=== PATIENT | male | born 1960 | race Caucasian/White ===

== ENCOUNTER 2019-01-19 15:05 | Inpatient (IN) | payer OTHER ==
[~2019-01-19] VITALS: Ht 185.4 cm; Wt 188.4 kg
[2019-01-19 15:09] VITALS: BP 192/73
[2019-01-19 15:39] LABS: BASO % 0.1 % (0.0-1.0); EOS % 0.1 % (1.0-4.0); HEMATOCRIT 46.2 % (42.0-52.0); HEMOGLOBIN 14.5 g/dl (14.0-18.0); LYMPH # 0.8 10*3/uL (1.3-4.4); LYMPH % 5.4 % (27.0-41.0); MEAN CELL VOLUME 85.9 fl (80.0-94.0); MEAN CORPUSCULAR HGB CONC 31.4 g/dl (33.0-37.0); MEAN PLATELET VOLUME 9.3 fl (9.6-12.3); MONO # 1.1 10*3/uL (0.1-1.0); MONO % 7.8 % (3.0-9.0); NEUT # 12.6 10*3/uL (2.3-7.9); PLATELET COUNT AUTOMATED 183 10*3/uL (130-400); RED BLOOD COUNT 5.38 10*6/uL (4.50-5.90); RED CELL DISTRI WIDTH 13.7 % (0-14.5); WHITE BLOOD COUNT 14.7 10*3/uL (4.8-10.8)
[2019-01-19 15:58] LABS: ALBUMIN 3.3 gm/dl (3.1-4.5); ALKALINE PHOSPHATASE 77 U/L (45-117); BUN 13 mg/dl (7-24); CHLORIDE 100 mmol/L (98-107); CREATININE 1.24 mg/dL (0.70-1.30); POTASSIUM 4.2 mmol/L (3.5-5.1); SGOT/AST 14 IU/L (3-35); SGPT/ALT 25 U/L (12-78); SODIUM 137 mmol/L (136-145); TROPONIN I 0.028 ng/ml (<0.045)
[2019-01-19 16:22] VITALS: BP 148/70
[2019-01-19 16:34] LABS: BILIRUBIN NEGATIVE (NEGATIVE); BLOOD TRACE-INTACT (NEGATIVE); CLARITY SL CLOUDY (CLEAR); COLOR YELLOW (YELLOW); GLUCOSE NEGATIVE (NEGATIVE); KETONE NEGATIVE (NEGATIVE); LEUKO ESTERASE TRACE (NEGATIVE); NITRITE NEGATIVE (NEGATIVE); PH 7.5 (5.0-9.0); SPECIFIC GRAVITY 1.015 (1.005-1.030)
[2019-01-19 16:39] LABS: RBC 0-2 rbc/hpf (0-2)
[2019-01-19 16:40] LABS: BACTERIA 4+; MUCOUS 2+; WBC TNTC wbc/hpf (0-5)
--- NOTE | 2019-01-19 18:48 | NUR ---
A 58, [facility] under the services of LIZABETH Dawn DO with a diagnosis of UTI, SEPSIS. Chief complaint is R FLANK PAIN, BURNING WITH URINATION. Patient arrived via bed from ER. Monitor applied. Initial assessment completed. Vital signs taken and recorded. LIZABETH DAWN DO notified of admission to the unit. Orders received. See assessment for past medical history, medications and allergies. Patient and/or family oriented to unit. [facility] visitation policy reviewed. Clothing/patient valuable form completed. CHEYENNE BELL
--- NOTE | 2019-01-19 19:20 | NUR ---
PT PROVIDED LIST OF HOME MEDICATIONS; PASSED ALONG TO NURSE CASTRO
[2019-01-19] MEDS ORDERED: CITALOPRAM40 MG PO (19:56)
[2019-01-19] MEDS ORDERED: LIPITOR20 MG PO ×2 (19:57→20:01)
[2019-01-19] MEDS ORDERED: FUROSEMIDE20 M1 PO (19:59)
[2019-01-19] MEDS ORDERED: OMEPRAZOLE40 MG PO (19:59)
[2019-01-19 20:00] VITALS: BP 151/63
[2019-01-19] MEDS ORDERED: ALLOPURINOL300 MG PO (20:00)
[2019-01-19] MEDS ORDERED: ABILIFY2 MG PO (20:00)
[2019-01-19] MEDS ORDERED: LISINOPRIL20 MG PO (20:00)
[2019-01-19] MEDS ORDERED: POTASSIUM CHLO20 ME3 PO (20:02)
[2019-01-19] MEDS ORDERED: HYDROCODONE-AC1 EAC1 PO (20:03)
[2019-01-19] MEDS ORDERED: BREO ELLIPTA 11 EACH INH (20:04)
[2019-01-19] MEDS ORDERED: VENT7GM INH (20:04)
[2019-01-19] MEDS ORDERED: IRON325 M1 PO (20:05)
--- NOTE | 2019-01-19 20:10 | NUR ---
DR SOMMERS NOTIFIED OF UPDATED MED REC.
--- NOTE | 2019-01-19 20:10 | NUR ---
SPOKE WITH DR SOMMERS REGARDING PTS SEPSIS BOLUS PROTOCOL. PER ORDER PT WOULD BE TO RECEIVE 5,400ML NORMAL SALINE. PT HAS A HISTORY OF CHF AND HAS 2+ EDEMA TO BLE AT THIS TIME. DR SOMMERS ORDERED TO DECREASE FLUIDS TO 150/HR AND ASSESS AFTER EACH BAG FOR SOB/FLUID OVERLOAD. DR SOMMERS AWARE OF FREQUENT PVC'S UPWARDS OF 25/MIN. STAT ORDER FOR BMP AND MAG TAKEN AT THIS TIME.
[2019-01-19 20:48] LABS: BUN 13 mg/dl (7-24); CHLORIDE 102 mmol/L (98-107); CREATININE 1.28 mg/dL (0.70-1.30); POTASSIUM 4.1 mmol/L (3.5-5.1); SODIUM 138 mmol/L (136-145)
--- NOTE | 2019-01-19 22:09 | NUR ---
PRN NORCO ADMINISTERED FOR PT C/O H/A RATED A 10 ON THE PAIN SCALE. WILL CONTINUE TO MONITOR AND REASSESS. NO OTHER COMPLAINTS AT THIS TIME.
--- NOTE | 2019-01-19 23:00 | NUR ---
PT ASLEEP, NO SIGNS OF DISCOMFORT OR DISTRESS NOTED. RESPIRATIONS NONLABORED AMD REGULAR.
--- NOTE | 2019-01-19 23:19 | NUR ---
DR SOMMERS NOTIFED OF PT HEARTRATE IN 110-115'S WITH 20 PVC'S. STATES TO CONTINUE TO MONITOR THE PT AND RUN FLUIDS AT 150ML/HR UNTIL PT RECEIVES APPROPRIATE AMOUNT ACCORDING TO SEPSIS PROTOCOL.
[2019-01-20] VITALS: BP 120/62
[2019-01-20 07:14] LABS: ALBUMIN 2.7 gm/dl (3.1-4.5); ALKALINE PHOSPHATASE 67 U/L (45-117); BUN 14 mg/dl (7-24); CHLORIDE 105 mmol/L (98-107); CHOLESTEROL 106 mg/dL (<200); HDL CHOLESTEROL 45 mg/dl (40-60); LDL CHOLESTEROL 50 mg/dL (9-159); PHOSPHOROUS 2.7 mg/dL (2.5-4.9); SGOT/AST 16 IU/L (3-35); SGPT/ALT 21 U/L (12-78); SODIUM 139 mmol/L (136-145); TOTAL PROTEIN 6.2 gm/dL (6.4-8.2); TRIGLYCERIDES 56 mg/dl (<150); VLDL CHOLESTEROL 11 mg/dL (6-40)
[2019-01-20 07:15] LABS: BASO % 0.2 % (0.0-1.0); EOS % 0.1 % (1.0-4.0); HEMATOCRIT 43.7 % (42.0-52.0); HEMOGLOBIN 13.5 g/dl (14.0-18.0); LYMPH # 1.3 10*3/uL (1.3-4.4); LYMPH % 9.1 % (27.0-41.0); MEAN CELL VOLUME 85.4 fl (80.0-94.0); MEAN CORPUSCULAR HGB 26.4 pg (27.0-31.0); MEAN CORPUSCULAR HGB CONC 30.9 g/dl (33.0-37.0); MONO # 1.5 10*3/uL (0.1-1.0); MONO % 10.7 % (3.0-9.0); NEUT # 10.9 10*3/uL (2.3-7.9); NEUT % 79.2 % (47.0-73.0); PLATELET COUNT AUTOMATED 164 10*3/uL (130-400); RED BLOOD COUNT 5.12 10*6/uL (4.50-5.90); RED CELL DISTRI WIDTH 14.1 % (0-14.5); WHITE BLOOD COUNT 13.8 10*3/uL (4.8-10.8)
[2019-01-20 07:26] LABS: ACT PARTIAL THROMBO TIME 29.6 SECONDS (20.0-32.1); INTERNATIONAL NORM RATIO 1.1 (2.0-3.5)
[2019-01-20 08:00] VITALS: BP 110/60
[2019-01-20 12:00] VITALS: BP 135/78
--- NOTE | 2019-01-20 13:17 | NUR ---
[employer] in to talk to patient. Patient states lives at home with family. There are few steps in the home. Physician: jonny zuniga [facility]acy: [facility] Home health services: none Patient's level of ADLs: INDEPENDENT Patient has working utilities: all working DME: none Follow-up physician's appointment after d/c: will be made by hospitalist nurse director upon discharge Does patient want to access PORTAL?: no Discharge plan discussed with patient, he states he lives at home, is independent in adls and ambulation, he states he will return home when medically stable and denies any home needs. PATSY LONG
--- NOTE | 2019-01-20 15:45 | NUR ---
PATIENT COMPLAINING OF HEADACHE AT THIS TIME AND MEDICATED WITH PO TYLENOL PER ORDER. WILL MONITOR FOR EFFECTIVENESS.
[2019-01-20 16:00] VITALS: BP 121/62
--- NOTE | 2019-01-20 17:00 | NUR ---
PER PATIENT, PRN MEDICATION HAS BEEN EFFECTIVE. NO FURTHER COMPLAINTS AT THIS TIME. VISITING WITH FAMILY IN ROOM.
[2019-01-20 20:00] VITALS: BP 116/57
[2019-01-21] VITALS: BP 123/61
[2019-01-21 06:41] LABS: BASO % 0.3 % (0.0-1.0); EOS # 0.2 10*3/uL (0.0-0.4); EOS % 2.2 % (1.0-4.0); HEMATOCRIT 42.1 % (42.0-52.0); HEMOGLOBIN 13.2 g/dl (14.0-18.0); LYMPH # 1.1 10*3/uL (1.3-4.4); LYMPH % 14.2 % (27.0-41.0); MEAN CELL VOLUME 86.1 fl (80.0-94.0); MEAN CORPUSCULAR HGB CONC 31.4 g/dl (33.0-37.0); MEAN PLATELET VOLUME 9.8 fl (9.6-12.3); MONO % 12.8 % (3.0-9.0); NEUT # 5.5 10*3/uL (2.3-7.9); NEUT % 69.6 % (47.0-73.0); PLATELET COUNT AUTOMATED 161 10*3/uL (130-400); RED BLOOD COUNT 4.89 10*6/uL (4.50-5.90); RED CELL DISTRI WIDTH 14.1 % (0-14.5); WHITE BLOOD COUNT 7.8 10*3/uL (4.8-10.8)
[2019-01-21 06:42] LABS: BUN 14 mg/dl (7-24); CHLORIDE 105 mmol/L (98-107); CREATININE 1.07 mg/dL (0.70-1.30); POTASSIUM 4.2 mmol/L (3.5-5.1); SODIUM 137 mmol/L (136-145)
[2019-01-21 08:00] VITALS: BP 128/78
--- NOTE | 2019-01-21 09:00 | NUR ---
case management visits with patient, he states he is hoping to be discharged today and denies any home needs
[2019-01-21] MEDS ORDERED: CEFUROXIME AXE500 MG PO (10:50)
[2019-01-21] MEDS ORDERED: TAMSULOSIN HCL0.4 MG PO (10:50)
--- NOTE | 2019-01-21 11:28 | NUR ---
HOME CARE INSTRUCTIONS GIVEN TOPT AND HE VERBALIZED GOOD UNDERSTANDING
--- NOTE | 2019-01-21 11:29 | NUR ---
DC TO HOME
== END 2019-01-21 10:53 | disposition home or self-care (01) | DRG 872 ==
LOC: ED 15:05 → 5E 18:09 → EDHOLD 18:09 → 5E 18:49
PROVIDERS: Family Medicine; Hospitalist; Physician Assistant; Student in an Organized Health Care Education/Training Program; ADMIT Internal Medicine
DX: A41.9 Sepsis, unspecified organism (principal); I50.22 Chronic systolic (congestive) heart failure; N30.01 Acute cystitis with hematuria; R17 Unspecified jaundice; N20.0 Calculus of kidney; R82.2 Biliuria; R73.9 Hyperglycemia, unspecified; I11.0 Hypertensive heart disease with heart failure; E55.9 Vitamin D deficiency, unspecified; B96.20 Unspecified Escherichia coli [E. coli] as the cause of diseases classified elsewhere; N28.1 Cyst of kidney, acquired; Z96.652 Presence of left artificial knee joint; D50.9 Iron deficiency anemia, unspecified; K21.9 Gastro-esophageal reflux disease without esophagitis; F41.9 Anxiety disorder, unspecified; F32.9 Major depressive disorder, single episode, unspecified; J45.909 Unspecified asthma, uncomplicated; E78.5 Hyperlipidemia, unspecified; M1A.9XX0 Chronic gout, unspecified, without tophus (tophi); Z87.442 Personal history of urinary calculi; Z90.49 Acquired absence of other specified parts of digestive tract; Z82.0 Family history of epilepsy and other diseases of the nervous system; Z79.899 Other long term (current) drug therapy

== ENCOUNTER 2019-02-10 14:03 | Emergency (ER) | payer OTHER ==
[~2019-02-10] VITALS: Ht 185.4 cm; Wt 188.2 kg
[~2019-02-10 14:03] MED LIST: ABILIFY2 MG PO; ALLOPURINOL300 MG PO; BREO ELLIPTA 11 EACH INH; CEFUROXIME AXE500 MG PO; CITALOPRAM40 MG PO; FUROSEMIDE20 M1 PO; HYDROCODONE-AC1 EAC1 PO; IRON325 M1 PO; LIPITOR20 MG PO; LISINOPRIL20 MG PO; OMEPRAZOLE40 MG PO; POTASSIUM CHLO20 ME3 PO; TAMSULOSIN HCL0.4 MG PO; VENT7GM INH
== END 2019-02-10 17:01 | disposition home or self-care (01) ==
LOC: ED 14:03
DX: S39.012A Strain of muscle, fascia and tendon of lower back, initial encounter (principal); M17.11 Unilateral primary osteoarthritis, right knee; J45.909 Unspecified asthma, uncomplicated; E78.00 Pure hypercholesterolemia, unspecified; I11.0 Hypertensive heart disease with heart failure; I50.9 Heart failure, unspecified; K21.9 Gastro-esophageal reflux disease without esophagitis; E66.01 Morbid (severe) obesity due to excess calories; Z87.442 Personal history of urinary calculi; Z79.899 Other long term (current) drug therapy; Z79.2 Long term (current) use of antibiotics; W18.41XA Slipping, tripping and stumbling without falling due to stepping on object, initial encounter; Y93.89 Activity, other specified; Y92.89 Other specified places as the place of occurrence of the external cause; Y99.8 Other external cause status

== ENCOUNTER 2021-10-03 21:50 | Emergency (ER) | payer OTHER, MEDICAID ==
[~2021-10-03] VITALS: Ht 185.4 cm; Wt 178.7 kg
[2021-10-04 00:50] LABS: HEMATOCRIT 44.5 % (42.0-52.0); MEAN CELL VOLUME 85.2 fl (80.0-94.0); MEAN CORPUSCULAR HGB 27.6 pg (27.0-31.0); MEAN CORPUSCULAR HGB CONC 32.4 g/dl (33.0-37.0); MEAN PLATELET VOLUME 9.7 fl (9.6-12.3); PLATELET COUNT AUTOMATED 166 10*3/uL (130-400); RED BLOOD COUNT 5.22 10*6/uL (4.50-5.90); RED CELL DISTRI WIDTH 14.2 % (0-14.5)
[2021-10-04 00:52] LABS: MANUAL DIFF REFLEX YES
[2021-10-04 01:08] LABS: ALKALINE PHOSPHATASE 71 U/L (45-117); BUN 22 mg/dl (7-24); CHLORIDE 99 mmol/L (98-107); CREATININE 1.44 mg/dL (0.70-1.30); POTASSIUM 5.2 mmol/L (3.5-5.1); SGOT/AST 19 IU/L (3-35); SGPT/ALT 20 U/L (12-78); SODIUM 133 mmol/L (136-145); TOTAL PROTEIN 7.1 gm/dL (6.4-8.2)
[2021-10-04 01:14] LABS: PLATELET SUFFICIENCY NORMAL (NORMAL); TOTAL CELLS COUNTED 100 #CELLS
[2021-10-04] MEDS ORDERED: PREDNISONE50 MG PO (03:18)
[2021-10-04] MEDS ORDERED: ZITHROMAX TRI-500 M1 PO (03:18)
== END 2021-10-04 03:51 | disposition home or self-care (01) ==
LOC: ED 21:50
PROVIDERS: Emergency Medicine
DX: R50.9 Fever, unspecified (principal); Z20.822 Contact with and (suspected) exposure to COVID-19; D72.829 Elevated white blood cell count, unspecified; R09.02 Hypoxemia; Z79.899 Other long term (current) drug therapy; Z90.49 Acquired absence of other specified parts of digestive tract; Z98.890 Other specified postprocedural states

== ENCOUNTER 2023-03-02 16:49 | Emergency (ER) | payer OTHER, MEDICAID ==
[~2023-03-02] VITALS: Ht 185.4 cm; Wt 149.7 kg
[~2023-03-02 16:49] MED LIST changes: +PREDNISONE50 MG PO; +ZITHROMAX TRI-500 M1 PO
[2023-03-02 18:20] LABS: BASO % 0.2 % (0.0-1.0); EOS % 0.2 % (1.0-4.0); HEMATOCRIT 41.9 % (42.0-52.0); LYMPH # 0.4 10*3/uL (1.3-4.4); LYMPH % 4.9 % (27.0-41.0); MEAN CELL VOLUME 85.7 fl (80.0-94.0); MEAN CORPUSCULAR HGB 27.8 pg (27.0-31.0); MEAN CORPUSCULAR HGB CONC 32.5 g/dl (33.0-37.0); MEAN PLATELET VOLUME 9.5 fl (9.6-12.3); MONO % 11.7 % (3.0-9.0); NEUT # 6.7 10*3/uL (2.3-7.9); NEUT % 82.5 % (47.0-73.0); PLATELET COUNT AUTOMATED 178 10*3/uL (130-400); RED BLOOD COUNT 4.89 10*6/uL (4.50-5.90); WHITE BLOOD COUNT 8.1 10*3/uL (4.8-10.8)
[2023-03-02 18:49] LABS: ALKALINE PHOSPHATASE 77 U/L (46-116); BUN 11 mg/dl (9-23); CHLORIDE 105 mmol/L (98-107); SGPT/ALT 17 U/L (5-49); TOTAL PROTEIN 6.7 gm/dL (6.0-8.0)
[2023-03-02] MEDS ORDERED: SEPTDS PO (20:30)
[2023-03-02] MEDS ORDERED: DEXAMETHASONE6 MG PO (20:30)
== END 2023-03-02 20:39 | disposition home or self-care (01) ==
LOC: ED 16:49
PROVIDERS: Physician Assistant Medical
DX: U07.1 COVID-19 (principal); M54.12 Radiculopathy, cervical region; L02.212 Cutaneous abscess of back [any part, except buttock and flank]; I11.0 Hypertensive heart disease with heart failure; I50.9 Heart failure, unspecified; J45.909 Unspecified asthma, uncomplicated; E78.00 Pure hypercholesterolemia, unspecified; Z87.442 Personal history of urinary calculi; Z96.652 Presence of left artificial knee joint; Z90.49 Acquired absence of other specified parts of digestive tract; Z98.890 Other specified postprocedural states

== ENCOUNTER → 2023-03-13 | Outpatient (CLI) | payer OTHER, MEDICAID ==
[~2023-03-13] MED LIST changes: +DEXAMETHASONE6 MG PO; +SEPTDS PO
== END | disposition home or self-care (01) ==
LOC: WOUNDCARE 02:22
PROVIDERS: ATTEND Nurse Practitioner Family
DX: T81.89XA Other complications of procedures, not elsewhere classified, initial encounter (principal); L02.212 Cutaneous abscess of back [any part, except buttock and flank]; L72.0 Epidermal cyst; I11.0 Hypertensive heart disease with heart failure; I50.9 Heart failure, unspecified; M48.02 Spinal stenosis, cervical region; Z96.652 Presence of left artificial knee joint; Z90.49 Acquired absence of other specified parts of digestive tract; Y92.238 Other place in hospital as the place of occurrence of the external cause; Y83.8 Other surgical procedures as the cause of abnormal reaction of the patient, or of later complication, without mention of misadventure at the time of the procedure

== ENCOUNTER → 2023-03-25 | Day surgery (SDC) | payer OTHER, MEDICAID ==
[2023-03-20 10:19] LABS: BUN 15 mg/dl (9-23); CHLORIDE 104 mmol/L (98-107); POTASSIUM 4.8 mmol/L (3.4-5.1)
[~2023-03-25] VITALS: Ht 182.8 cm; Wt 145.6 kg
[~2023-03-25] MED LIST changes: +BUMETANIDE2 MG PO; +COLCHICINE0.6 M1 PO; +FASENRA30 MG/1 ML SQ; +FLUTICASONE-SA1 EAC4 INH; +ISOSORBIDE DINI30 MG PO; +MONTELUKAST SOD10 MG PO; +MUPIROCIN15 GM; +PROTONIX20 MG PO; +TOPROL XL50 M1 PO; +XARE20MG PO
[2023-03-25 07:08] VITALS: BP 159/91
[2023-03-25 08:18] VITALS: BP 144/80
[2023-03-25 08:33] VITALS: BP 150/77
[2023-03-25 08:48] VITALS: BP 147/81
[2023-03-25 09:03] VITALS: BP 163/91
[2023-03-25 09:18] VITALS: BP 142/79
== END | disposition home or self-care (01) ==
LOC: SDC 03-20 11:00
PROVIDERS: ATTEND Surgery
DX: D17.0 Benign lipomatous neoplasm of skin and subcutaneous tissue of head, face and neck (principal); L72.0 Epidermal cyst; I11.0 Hypertensive heart disease with heart failure; I50.9 Heart failure, unspecified; K21.9 Gastro-esophageal reflux disease without esophagitis; J45.909 Unspecified asthma, uncomplicated; E78.00 Pure hypercholesterolemia, unspecified; I25.2 Old myocardial infarction; Z98.42 Cataract extraction status, left eye; Z98.41 Cataract extraction status, right eye; Z98.890 Other specified postprocedural states

== ENCOUNTER → 2023-04-20 | Outpatient (CLI) | payer OTHER, MEDICAID ==
[2023-04-20 09:17] LABS: BASO % 0.1 % (0.0-1.0); EOS % 0.3 % (1.0-4.0); HEMATOCRIT 46.4 % (42.0-52.0); LYMPH # 1.8 10*3/uL (1.3-4.4); MEAN CELL VOLUME 85.6 fl (80.0-94.0); MEAN CORPUSCULAR HGB 26.9 pg (27.0-31.0); MEAN CORPUSCULAR HGB CONC 31.5 g/dl (33.0-37.0); MEAN PLATELET VOLUME 10.2 fl (9.6-12.3); MONO # 0.7 10*3/uL (0.1-1.0); NEUT # 5.2 10*3/uL (2.3-7.9); NEUT % 67.1 % (47.0-73.0); PLATELET COUNT AUTOMATED 195 10*3/uL (130-400); RED BLOOD COUNT 5.42 10*6/uL (4.50-5.90); RED CELL DISTRI WIDTH 13.5 % (0-14.5); WHITE BLOOD COUNT 7.7 10*3/uL (4.8-10.8)
[2023-04-20 09:54] LABS: VITAMIN D, 25-HYDROXY 30.8 ng/mL (30-100)
[2023-04-20 09:56] LABS: ALKALINE PHOSPHATASE 89 U/L (46-116); BUN 9 mg/dl (9-23); CHLORIDE 106 mmol/L (98-107); CHOLESTEROL 162 mg/dL (<200); LDL CHOLESTEROL 107 mg/dL (9-159); POTASSIUM 4.4 mmol/L (3.4-5.1); SGPT/ALT 13 U/L (5-49); TOTAL PROTEIN 6.8 gm/dL (6.0-8.0); TRIGLYCERIDES 72 mg/dl (<150)
== END ==
LOC: LAB 08:40
PROVIDERS: ATTEND Nurse Practitioner Primary Care
DX: Z12.5 Encounter for screening for malignant neoplasm of prostate (principal); I10 Essential (primary) hypertension; E78.5 Hyperlipidemia, unspecified; E55.9 Vitamin D deficiency, unspecified; R73.03 Prediabetes; Z98.84 Bariatric surgery status; D50.9 Iron deficiency anemia, unspecified

== ENCOUNTER → 2023-05-14 | Outpatient (CLI) | payer OTHER, MEDICAID | END | disposition home or self-care (01) | LOC: CARD 01:19 | PROVIDERS: ATTEND Internal Medicine Cardiovascular Disease | DX: I10 Essential (primary) hypertension (principal); I51.7 Cardiomegaly; Z86.79 Personal history of other diseases of the circulatory system; Z82.49 Family history of ischemic heart disease and other diseases of the circulatory system ==

== ENCOUNTER → 2023-06-08 | Day surgery (SDC) | payer MEDICARE, MEDICAID ==
[~2023-06-08] VITALS: Ht 182.8 cm; Wt 149.7 kg
[~2023-06-08] MED LIST changes: +ALLOPURINOL 300 MG TAB PO SCH; +Albuterol Sulfate 2.5 MG/3 ML VIAL NEB SCH; +BUMETANIDE 1 MG TAB PO SCH; +CITALOPRAM 20 MG TAB PO SCH; +Fluticasone Propionate/Salmeterol 250/50 diskus INH SCH; +LISINOPRIL 20 MG TAB PO SCH; +Lactated Ringer's Solution 1,000 ML IV ONE; +Lidocaine Hydrochloride 2% 10 ML AMP IM ONE; +METOPROLOL SUCCINATE XR 50 MG TAB PO SCH; +Midazolam Hydrochloride 2 MG/2 ML VIAL IV ONE; +Montelukast Sodium 10 MG TAB PO SCH; +POTASSIUM CHLORIDE 20 MEQ TAB PO SCH; +PROPOFOL 200 MG/20 ML VIAL IV ONE; +Pantoprazole Sodium 20 MG TAB PO SCH; +RIVAROXABAN 20 MG TAB PO SCH; +SODIUM CHLORIDE 0.9% 0 ML IV ONE
[2023-06-08 08:00] VITALS: BP 156/82
[2023-06-08 09:45] VITALS: BP 145/68
[2023-06-08 10:00] VITALS: BP 144/78
[2023-06-08 10:19] VITALS: BP 152/77
== END | disposition home or self-care (01) ==
LOC: SDC 06-04 09:30
PROVIDERS: ATTEND Surgery
DX: Z12.11 Encounter for screening for malignant neoplasm of colon (principal); Z86.010 Personal history of colon polyps; I11.0 Hypertensive heart disease with heart failure; I50.9 Heart failure, unspecified; I25.10 Atherosclerotic heart disease of native coronary artery without angina pectoris; I25.2 Old myocardial infarction; E78.00 Pure hypercholesterolemia, unspecified; M10.9 Gout, unspecified; K21.9 Gastro-esophageal reflux disease without esophagitis; Z86.718 Personal history of other venous thrombosis and embolism; G47.33 Obstructive sleep apnea (adult) (pediatric); Z98.42 Cataract extraction status, left eye; Z98.41 Cataract extraction status, right eye; Z98.890 Other specified postprocedural states; Z79.899 Other long term (current) drug therapy
CPT/HCPCS: 00812; G0105

== ENCOUNTER → 2023-06-11 | Outpatient (CLI) | payer MEDICARE, OTHER ==
[~2023-06-11] MED LIST changes: -ALLOPURINOL 300 MG TAB PO SCH; -Albuterol Sulfate 2.5 MG/3 ML VIAL NEB SCH; +BARIUM SULFATE 105% 750 ML ORAL SUSP ONE; +BARIUM SULFATE 105% 750 ML ORAL SUSP R ONE; -BUMETANIDE 1 MG TAB PO SCH; -CITALOPRAM 20 MG TAB PO SCH; +DIATRIZOATE MEG/DIATRIZO. SOD 120 ML BOT R ONE; -Fluticasone Propionate/Salmeterol 250/50 diskus INH SCH; -LISINOPRIL 20 MG TAB PO SCH; -Lactated Ringer's Solution 1,000 ML IV ONE; -Lidocaine Hydrochloride 2% 10 ML AMP IM ONE; -METOPROLOL SUCCINATE XR 50 MG TAB PO SCH; -Midazolam Hydrochloride 2 MG/2 ML VIAL IV ONE; -Montelukast Sodium 10 MG TAB PO SCH; -POTASSIUM CHLORIDE 20 MEQ TAB PO SCH; -PROPOFOL 200 MG/20 ML VIAL IV ONE; -Pantoprazole Sodium 20 MG TAB PO SCH; -RIVAROXABAN 20 MG TAB PO SCH; -SODIUM CHLORIDE 0.9% 0 ML IV ONE
== END | disposition home or self-care (01) ==
LOC: RAD 08:20
PROVIDERS: ATTEND Nurse Practitioner
DX: K57.30 Diverticulosis of large intestine without perforation or abscess without bleeding (principal)

== ENCOUNTER → 2023-06-26 | Outpatient (CLI) | payer MEDICARE, OTHER ==
[~2023-06-26] MED LIST changes: -BARIUM SULFATE 105% 750 ML ORAL SUSP ONE; -BARIUM SULFATE 105% 750 ML ORAL SUSP R ONE; -DIATRIZOATE MEG/DIATRIZO. SOD 120 ML BOT R ONE; +IOHEXOL 300 MG/ML 100 ML VIAL IV ONE
== END | disposition home or self-care (01) ==
LOC: CT 01:21
PROVIDERS: ATTEND Nurse Practitioner Primary Care
DX: N20.0 Calculus of kidney (principal); R19.00 Intra-abdominal and pelvic swelling, mass and lump, unspecified site; Z90.49 Acquired absence of other specified parts of digestive tract; Z98.84 Bariatric surgery status

== ENCOUNTER 2023-08-31 09:55 | Emergency (ER) | payer OTHER ==
[~2023-08-31] VITALS: Ht 185.4 cm; Wt 149.7 kg
[~2023-08-31 09:55] MED LIST changes: -IOHEXOL 300 MG/ML 100 ML VIAL IV ONE
[2023-08-31] MEDS ORDERED: AMOX-CLAV 875-1 EACH PO (10:24)
[2023-08-31] MEDS ORDERED: CIPROFLOXACIN H10 ML OPH (10:24)
== END 2023-08-31 10:40 | disposition home or self-care (01) ==
LOC: ED 09:55
DX: L03.213 Periorbital cellulitis (principal); I11.0 Hypertensive heart disease with heart failure; I50.9 Heart failure, unspecified; J45.909 Unspecified asthma, uncomplicated; I25.2 Old myocardial infarction; K21.9 Gastro-esophageal reflux disease without esophagitis; E78.00 Pure hypercholesterolemia, unspecified; Z87.442 Personal history of urinary calculi; Z90.49 Acquired absence of other specified parts of digestive tract; Z98.890 Other specified postprocedural states; Z96.652 Presence of left artificial knee joint

== ENCOUNTER 2023-10-26 12:31 | Inpatient (IN) | payer OTHER ==
[~2023-10-26] VITALS: Ht 185.4 cm; Wt 146.1 kg
[~2023-10-26 12:31] MED LIST changes: +AMOX-CLAV 875-1 EACH PO; +CIPROFLOXACIN H10 ML OPH
[2023-10-26] MEDS ORDERED: CEPHALEXIN500 M1 PO (12:43)
[2023-10-26 14:21] LABS: BASO % 0.3 % (0.0-1.0); EOS # 0.2 10*3/uL (0.0-0.4); EOS % 1.8 % (1.0-4.0); HEMATOCRIT 44.7 % (42.0-52.0); LYMPH % 16.5 % (27.0-41.0); MEAN CORPUSCULAR HGB CONC 32.2 g/dl (33.0-37.0); MONO # 1.1 10*3/uL (0.1-1.0); MONO % 9.1 % (3.0-9.0); NEUT # 8.5 10*3/uL (2.3-7.9); PLATELET COUNT AUTOMATED 175 10*3/uL (130-400); RED BLOOD COUNT 5.14 10*6/uL (4.50-5.90); RED CELL DISTRI WIDTH 13.7 % (0-14.5); WHITE BLOOD COUNT 11.8 10*3/uL (4.8-10.8)
[2023-10-26 14:40] LABS: BUN 11 mg/dl (9-23); CHLORIDE 105 mmol/L (98-107); POTASSIUM 4.8 mmol/L (3.4-5.1)
[2023-10-26] MEDS ORDERED: Vancomycin Hydrochloride 250 ML IV ONE (15:00)
[2023-10-26] MEDS ORDERED: BISACODYL 10 MG SUPP R PRN (17:40)
[2023-10-26] MEDS ORDERED: BISACODYL 5 MG TAB PO PRN (17:40)
[2023-10-26] MEDS ORDERED: ACETAMINOPHEN 650 MG SUPP R PRN (17:40)
[2023-10-26] MEDS ORDERED: ACETAMINOPHEN 325 MG TAB PO PRN (17:40)
[2023-10-26] MEDS ORDERED: Magnesium Hydroxide 30 ML UDC PO PRN (17:40)
[2023-10-26] MEDS ORDERED: Piperacillin Sodium/Tazobact 50 ML IV SCH (18:00)
[2023-10-26] MEDS ORDERED: IOHEXOL 300 MG/ML 100 ML VIAL IV ONE (18:10)
[2023-10-26 18:21] VITALS: BP 145/70
[2023-10-26 19:50] VITALS: BP 135/79
[2023-10-27] VITALS (12 sets, daily range): BP systolic 132–166; BP diastolic 62–94
[2023-10-27] MEDS ORDERED: VANCOMYCIN/WATER FOR INJ (PEG) 400 ML IV SCH (02:00)
[2023-10-27] MEDS ORDERED: MORPHINE Sulfate 2 MG/ML SYR IV ONE (04:55)
[2023-10-27] MEDS ORDERED: Ketorolac Tromethamine 15 MG/ML VIAL IV ONE (04:55)
[2023-10-27 06:53] LABS: FREE T4 1.16 ng/dl (0.89-1.76); VITAMIN D, 25-HYDROXY 38.7 ng/mL (30-100)
[2023-10-27 07:27] LABS: BASO % 0.2 % (0.0-1.0); EOS # 0.2 10*3/uL (0.0-0.4); EOS % 2.5 % (1.0-4.0); HEMATOCRIT 39.9 % (42.0-52.0); LYMPH # 1.4 10*3/uL (1.3-4.4); LYMPH % 15.1 % (27.0-41.0); MEAN CELL VOLUME 88.5 fl (80.0-94.0); MEAN CORPUSCULAR HGB 28.2 pg (27.0-31.0); MEAN CORPUSCULAR HGB CONC 31.8 g/dl (33.0-37.0); MEAN PLATELET VOLUME 9.9 fl (9.6-12.3); MONO # 0.8 10*3/uL (0.1-1.0); MONO % 8.8 % (3.0-9.0); NEUT # 6.6 10*3/uL (2.3-7.9); NEUT % 73.2 % (47.0-73.0); PLATELET COUNT AUTOMATED 148 10*3/uL (130-400); RED BLOOD COUNT 4.51 10*6/uL (4.50-5.90); RED CELL DISTRI WIDTH 13.5 % (0-14.5); WHITE BLOOD COUNT 9.1 10*3/uL (4.8-10.8)
[2023-10-27 07:49] LABS: BUN 12 mg/dl (9-23); CHLORIDE 105 mmol/L (98-107); POTASSIUM 4.9 mmol/L (3.4-5.1)
[2023-10-27] MEDS ORDERED: BUDESONIDE 0.5 MG AMP NEB SCH (12:35)
[2023-10-27] MEDS ORDERED: Albuterol Sulfate 2.5 MG/3 ML VIAL NEB SCH (12:35)
[2023-10-27] MEDS ORDERED: POTASSIUM CHLORIDE 20 MEQ TAB PO SCH (14:00)
[2023-10-27] MEDS ORDERED: Lactated Ringer's Solution 1,000 ML IV ONE ×2 (15:45→15:58)
[2023-10-27] MEDS ORDERED: Montelukast Sodium 10 MG TAB PO SCH (18:00)
[2023-10-27] MEDS ORDERED: MORPHINE Sulfate 2 MG/ML SYR IV PRN (20:25)
[2023-10-27] MEDS ORDERED: Acetaminophen/Hydrocodone 5 MG/325 MG TABLET PO PRN (20:25)
[2023-10-27] MEDS ORDERED: SEVOFLURANE 250 ML BOT INH ONE (20:51)
[2023-10-27] MEDS ORDERED: fentaNYL CITRATE 100 MCG/2 ML VIAL IV ONE (20:51)
[2023-10-27] MEDS ORDERED: PROPOFOL 200 MG/20 ML VIAL IV ONE (20:51)
[2023-10-27] MEDS ORDERED: Lidocaine Hydrochloride 2% 10 ML AMP IM ONE (20:51)
[2023-10-27] MEDS ORDERED: Succinylcholine Chloride 200 MG/10 ML SYRINGE IV ONE (20:51)
[2023-10-27] MEDS ORDERED: Ondansetron Hydrochloride 4 MG/2 ML VIAL IV ONE (20:51)
[2023-10-27] MEDS ORDERED: METOPROLOL SUCCINATE XR 50 MG TAB PO SCH (22:00)
[2023-10-27] MEDS ORDERED: ATORVASTATIN CA10 M1 PO (23:34)
[2023-10-28] VITALS: BP 139/72
[2023-10-28] MEDS ORDERED: Pantoprazole Sodium 20 MG TAB PO SCH (06:00)
[2023-10-28 07:07] LABS: BASO % 0.2 % (0.0-1.0); EOS # 0.3 10*3/uL (0.0-0.4); EOS % 3.2 % (1.0-4.0); HEMATOCRIT 42.3 % (42.0-52.0); LYMPH % 12.3 % (27.0-41.0); MEAN CELL VOLUME 89.4 fl (80.0-94.0); MEAN CORPUSCULAR HGB 27.5 pg (27.0-31.0); MEAN CORPUSCULAR HGB CONC 30.7 g/dl (33.0-37.0); MEAN PLATELET VOLUME 10.1 fl (9.6-12.3); MONO % 11.2 % (3.0-9.0); NEUT # 6.2 10*3/uL (2.3-7.9); NEUT % 72.6 % (47.0-73.0); PLATELET COUNT AUTOMATED 165 10*3/uL (130-400); RED BLOOD COUNT 4.73 10*6/uL (4.50-5.90); RED CELL DISTRI WIDTH 13.6 % (0-14.5); WHITE BLOOD COUNT 8.5 10*3/uL (4.8-10.8)
[2023-10-28 07:17] LABS: BUN 10 mg/dl (9-23); CHLORIDE 104 mmol/L (98-107); POTASSIUM 4.8 mmol/L (3.4-5.1)
[2023-10-28 08:00] VITALS: BP 144/65
[2023-10-28] MEDS ORDERED: CITALOPRAM 20 MG TAB PO SCH (10:00)
[2023-10-28] MEDS ORDERED: CYANOCOBALAMIN 500 MCG TAB PO SCH (10:00)
[2023-10-28] MEDS ORDERED: ALLOPURINOL 300 MG TAB PO SCH (10:00)
[2023-10-28] MEDS ORDERED: LISINOPRIL 20 MG TAB PO SCH (10:00)
[2023-10-28 12:00] VITALS: BP 124/67
[2023-10-28] MEDS ORDERED: RIVAROXABAN 20 MG TAB PO SCH ×2 (13:25→18:00)
[2023-10-28 16:00] VITALS: BP 105/52
[2023-10-28 20:00] VITALS: BP 138/76
[2023-10-29] VITALS: BP 133/73
[2023-10-29 08:00] VITALS: BP 131/67; BP 137/73
[2023-10-29] MEDS ORDERED: Albuterol Sulfate 2.5 MG/3 ML VIAL NEB PRN (10:00)
[2023-10-29 12:00] VITALS: BP 147/77
[2023-10-29 16:00] VITALS: BP 150/75
[2023-10-29 20:00] VITALS: BP 152/82
[2023-10-30] VITALS: BP 141/79
[2023-10-30 06:25] LABS: BASO % 0.4 % (0.0-1.0); EOS # 0.4 10*3/uL (0.0-0.4); HEMATOCRIT 40.7 % (42.0-52.0); LYMPH # 1.1 10*3/uL (1.3-4.4); LYMPH % 15.5 % (27.0-41.0); MEAN CORPUSCULAR HGB CONC 32.2 g/dl (33.0-37.0); MEAN PLATELET VOLUME 10.2 fl (9.6-12.3); MONO # 0.7 10*3/uL (0.1-1.0); NEUT % 67.8 % (47.0-73.0); PLATELET COUNT AUTOMATED 178 10*3/uL (130-400); RED BLOOD COUNT 4.68 10*6/uL (4.50-5.90); RED CELL DISTRI WIDTH 13.7 % (0-14.5); WHITE BLOOD COUNT 7.3 10*3/uL (4.8-10.8)
[2023-10-30 06:42] LABS: BUN 12 mg/dl (9-23); CHLORIDE 106 mmol/L (98-107); POTASSIUM 4.9 mmol/L (3.4-5.1)
[2023-10-30 08:00] VITALS: BP 157/49
[2023-10-30] MEDS ORDERED: SEPTDS PO (08:41)
[2023-10-30] MEDS ORDERED: PHARMASSURE V500 MCG PO (08:41)
== END 2023-10-30 10:32 | disposition home or self-care (01) | DRG 571 ==
LOC: ED 12:31 → 4E 15:43 → EDHOLD 15:43 → 4E 10-27 21:03
PROVIDERS: Internal Medicine; Physician Assistant Medical; Student in an Organized Health Care Education/Training Program; ADMIT Internal Medicine; ATTEND Internal Medicine
PROC: 0JBL0ZZ Excision of Right Upper Leg Subcutaneous Tissue and Fascia, Open Approach (ICD-10-PCS; principal; 2023-10-27)
DX: L03.115 Cellulitis of right lower limb (principal); I50.32 Chronic diastolic (congestive) heart failure; L02.415 Cutaneous abscess of right lower limb; I11.0 Hypertensive heart disease with heart failure; E78.5 Hyperlipidemia, unspecified; F41.8 Other specified anxiety disorders; K21.9 Gastro-esophageal reflux disease without esophagitis; D72.829 Elevated white blood cell count, unspecified; E55.9 Vitamin D deficiency, unspecified; Z96.652 Presence of left artificial knee joint; J45.909 Unspecified asthma, uncomplicated; M1A.9XX0 Chronic gout, unspecified, without tophus (tophi); Z22.322 Carrier or suspected carrier of Methicillin resistant Staphylococcus aureus; Z90.49 Acquired absence of other specified parts of digestive tract; Z80.52 Family history of malignant neoplasm of bladder; Z86.16 Personal history of COVID-19; Z86.010 Personal history of colon polyps; Z86.711 Personal history of pulmonary embolism

== ENCOUNTER → 2023-11-03 | Outpatient (CLI) | payer OTHER ==
[~2023-11-03] MED LIST changes: +ATORVASTATIN CA10 M1 PO; +CEPHALEXIN500 M1 PO; +PHARMASSURE V500 MCG PO
== END | disposition home or self-care (01) ==
LOC: WOUNDCARE 01:59
PROVIDERS: ATTEND Nurse Practitioner Family
DX: T81.31XA Disruption of external operation (surgical) wound, not elsewhere classified, initial encounter (principal); M72.6 Necrotizing fasciitis; L02.415 Cutaneous abscess of right lower limb; L03.115 Cellulitis of right lower limb; I11.0 Hypertensive heart disease with heart failure; I50.9 Heart failure, unspecified; E78.5 Hyperlipidemia, unspecified; M48.02 Spinal stenosis, cervical region; K21.9 Gastro-esophageal reflux disease without esophagitis; A49.02 Methicillin resistant Staphylococcus aureus infection, unspecified site; F41.9 Anxiety disorder, unspecified; F32.A Depression, unspecified; Z86.711 Personal history of pulmonary embolism; Z85.51 Personal history of malignant neoplasm of bladder; Z90.49 Acquired absence of other specified parts of digestive tract; Z96.652 Presence of left artificial knee joint; Z79.899 Other long term (current) drug therapy; Y83.8 Other surgical procedures as the cause of abnormal reaction of the patient, or of later complication, without mention of misadventure at the time of the procedure; Y92.89 Other specified places as the place of occurrence of the external cause

== ENCOUNTER → 2023-11-04 | Outpatient (CLI) | payer OTHER ==
[2023-11-04 10:45] LABS: BASO % 0.5 % (0.0-1.0); EOS # 0.4 10*3/uL (0.0-0.4); EOS % 4.8 % (1.0-4.0); HEMATOCRIT 44.3 % (42.0-52.0); LYMPH # 1.6 10*3/uL (1.3-4.4); LYMPH % 20.3 % (27.0-41.0); MEAN CELL VOLUME 85.9 fl (80.0-94.0); MEAN CORPUSCULAR HGB 28.1 pg (27.0-31.0); MEAN CORPUSCULAR HGB CONC 32.7 g/dl (33.0-37.0); MEAN PLATELET VOLUME 9.5 fl (9.6-12.3); MONO # 0.7 10*3/uL (0.1-1.0); MONO % 8.7 % (3.0-9.0); NEUT # 5.2 10*3/uL (2.3-7.9); NEUT % 65.2 % (47.0-73.0); PLATELET COUNT AUTOMATED 198 10*3/uL (130-400); RED BLOOD COUNT 5.16 10*6/uL (4.50-5.90); RED CELL DISTRI WIDTH 13.5 % (0-14.5)
[2023-11-04 11:14] LABS: BUN 15 mg/dl (9-23); CHLORIDE 106 mmol/L (98-107); POTASSIUM 4.6 mmol/L (3.4-5.1)
== END | disposition home or self-care (01) ==
LOC: LAB 10:20
PROVIDERS: ATTEND Registered Nurse
DX: L02.415 Cutaneous abscess of right lower limb (principal)

== ENCOUNTER → 2023-11-05 | Outpatient (CLI) | payer OTHER | END | disposition home or self-care (01) | LOC: WOUNDCARE 03:37 | PROVIDERS: ATTEND Nurse Practitioner Family | DX: T81.31XD Disruption of external operation (surgical) wound, not elsewhere classified, subsequent encounter (principal); M72.6 Necrotizing fasciitis; L02.415 Cutaneous abscess of right lower limb; L03.115 Cellulitis of right lower limb; I11.0 Hypertensive heart disease with heart failure; I50.9 Heart failure, unspecified; E78.5 Hyperlipidemia, unspecified; M48.02 Spinal stenosis, cervical region; K21.9 Gastro-esophageal reflux disease without esophagitis; A49.02 Methicillin resistant Staphylococcus aureus infection, unspecified site; F41.9 Anxiety disorder, unspecified; F32.A Depression, unspecified; Z86.711 Personal history of pulmonary embolism; Z85.51 Personal history of malignant neoplasm of bladder; Z90.49 Acquired absence of other specified parts of digestive tract; Z96.652 Presence of left artificial knee joint; Z79.899 Other long term (current) drug therapy; Y83.8 Other surgical procedures as the cause of abnormal reaction of the patient, or of later complication, without mention of misadventure at the time of the procedure ==

== ENCOUNTER 2023-11-07 11:02 | Emergency (ER) | payer OTHER ==
[~2023-11-07] VITALS: Ht 182.8 cm; Wt 148.8 kg
[2023-11-07] MEDS ORDERED: SODIUM CHLORIDE 0.9% 1,000 ML IV ONE (12:05)
[2023-11-07 12:29] LABS: BASO % 0.5 % (0.0-1.0); EOS # 0.4 10*3/uL (0.0-0.4); EOS % 4.1 % (1.0-4.0); LYMPH # 1.5 10*3/uL (1.3-4.4); LYMPH % 16.6 % (27.0-41.0); MEAN CORPUSCULAR HGB 27.8 pg (27.0-31.0); MEAN PLATELET VOLUME 9.6 fl (9.6-12.3); MONO # 0.7 10*3/uL (0.1-1.0); MONO % 8.4 % (3.0-9.0); NEUT # 6.1 10*3/uL (2.3-7.9); NEUT % 70.1 % (47.0-73.0); PLATELET COUNT AUTOMATED 216 10*3/uL (130-400); RED BLOOD COUNT 5.29 10*6/uL (4.50-5.90); RED CELL DISTRI WIDTH 13.4 % (0-14.5); WHITE BLOOD COUNT 8.7 10*3/uL (4.8-10.8)
[2023-11-07 12:42] LABS: ACT PARTIAL THROMBO TIME 26.6 SECONDS (20.0-32.1)
[2023-11-07 12:53] LABS: ALKALINE PHOSPHATASE 90 U/L (46-116); BUN 13 mg/dl (9-23); CHLORIDE 104 mmol/L (98-107); LIPASE 43 U/L (12-53); SGPT/ALT 16 U/L (5-49); TOTAL PROTEIN 7.5 gm/dL (6.0-8.0)
== END 2023-11-07 16:25 | disposition home or self-care (01) ==
LOC: ED 11:02
PROVIDERS: Internal Medicine
DX: R19.7 Diarrhea, unspecified (principal); T36.1X5A Adverse effect of cephalosporins and other beta-lactam antibiotics, initial encounter; I11.0 Hypertensive heart disease with heart failure; I50.9 Heart failure, unspecified; J45.909 Unspecified asthma, uncomplicated; I25.2 Old myocardial infarction; K21.9 Gastro-esophageal reflux disease without esophagitis; E78.00 Pure hypercholesterolemia, unspecified; F32.A Depression, unspecified; Z87.442 Personal history of urinary calculi; Z96.652 Presence of left artificial knee joint; Z90.49 Acquired absence of other specified parts of digestive tract; Z98.890 Other specified postprocedural states; Y92.000 Kitchen of unspecified non-institutional (private) residence as the place of occurrence of the external cause

== ENCOUNTER → 2023-11-10 | Outpatient (CLI) | payer OTHER | END | disposition home or self-care (01) | LOC: WOUNDCARE 02:38 | PROVIDERS: ATTEND Nurse Practitioner Family | DX: T81.31XD Disruption of external operation (surgical) wound, not elsewhere classified, subsequent encounter (principal); M72.6 Necrotizing fasciitis; L02.415 Cutaneous abscess of right lower limb; L03.115 Cellulitis of right lower limb; I11.0 Hypertensive heart disease with heart failure; I50.9 Heart failure, unspecified; E78.5 Hyperlipidemia, unspecified; M48.02 Spinal stenosis, cervical region; K21.9 Gastro-esophageal reflux disease without esophagitis; A49.02 Methicillin resistant Staphylococcus aureus infection, unspecified site; F41.9 Anxiety disorder, unspecified; F32.A Depression, unspecified; Z86.711 Personal history of pulmonary embolism; Z85.51 Personal history of malignant neoplasm of bladder; Z90.49 Acquired absence of other specified parts of digestive tract; Z96.652 Presence of left artificial knee joint; Z79.899 Other long term (current) drug therapy; Y83.8 Other surgical procedures as the cause of abnormal reaction of the patient, or of later complication, without mention of misadventure at the time of the procedure ==

== ENCOUNTER → 2023-11-17 | Outpatient (CLI) | payer OTHER ==
[2023-11-17 10:46] LABS: HEMATOCRIT 43.6 % (42.0-52.0)
== END | disposition home or self-care (01) ==
LOC: LAB 01:50 → WOUNDCARE 01:50
PROVIDERS: ATTEND Nurse Practitioner Family
DX: Z79.01 Long term (current) use of anticoagulants (principal)

== ENCOUNTER → 2023-11-24 | Outpatient (CLI) | payer OTHER ==
[2023-11-24 08:50] LABS: HEMATOCRIT 40.9 % (42.0-52.0)
== END | disposition home or self-care (01) ==
LOC: WOUNDCARE 02:06 → LAB 02:50 → WOUNDCARE 03:28
PROVIDERS: Nurse Practitioner Primary Care; ATTEND Nurse Practitioner Family
DX: T81.31XD Disruption of external operation (surgical) wound, not elsewhere classified, subsequent encounter (principal); L02.415 Cutaneous abscess of right lower limb; L03.115 Cellulitis of right lower limb; A49.02 Methicillin resistant Staphylococcus aureus infection, unspecified site; M72.6 Necrotizing fasciitis; E78.5 Hyperlipidemia, unspecified; I11.0 Hypertensive heart disease with heart failure; I50.9 Heart failure, unspecified; K21.9 Gastro-esophageal reflux disease without esophagitis; F41.9 Anxiety disorder, unspecified; Z85.51 Personal history of malignant neoplasm of bladder; Z96.652 Presence of left artificial knee joint; Z90.49 Acquired absence of other specified parts of digestive tract; Y83.8 Other surgical procedures as the cause of abnormal reaction of the patient, or of later complication, without mention of misadventure at the time of the procedure

== ENCOUNTER → 2023-12-01 | Outpatient (CLI) | payer OTHER ==
[2023-12-01 07:59] LABS: HEMATOCRIT 43.3 % (42.0-52.0)
== END | disposition home or self-care (01) ==
LOC: LAB 01:23 → WOUNDCARE 01:23
PROVIDERS: Nurse Practitioner Primary Care; ATTEND Nurse Practitioner Family
DX: T81.31XD Disruption of external operation (surgical) wound, not elsewhere classified, subsequent encounter (principal); M72.6 Necrotizing fasciitis; L02.415 Cutaneous abscess of right lower limb; L03.115 Cellulitis of right lower limb; I11.0 Hypertensive heart disease with heart failure; I50.9 Heart failure, unspecified; A49.02 Methicillin resistant Staphylococcus aureus infection, unspecified site; E78.5 Hyperlipidemia, unspecified; K21.9 Gastro-esophageal reflux disease without esophagitis; M48.02 Spinal stenosis, cervical region; F41.9 Anxiety disorder, unspecified; F32.A Depression, unspecified; Z86.711 Personal history of pulmonary embolism; Z85.51 Personal history of malignant neoplasm of bladder; Z96.652 Presence of left artificial knee joint; Z90.49 Acquired absence of other specified parts of digestive tract; Z79.01 Long term (current) use of anticoagulants; Z79.899 Other long term (current) drug therapy; Y83.8 Other surgical procedures as the cause of abnormal reaction of the patient, or of later complication, without mention of misadventure at the time of the procedure

== ENCOUNTER → 2023-12-08 | Outpatient (CLI) | payer OTHER | END | disposition home or self-care (01) | LOC: WOUNDCARE 00:40 | PROVIDERS: ATTEND Nurse Practitioner Family | DX: T81.31XD Disruption of external operation (surgical) wound, not elsewhere classified, subsequent encounter (principal); M72.6 Necrotizing fasciitis; L02.415 Cutaneous abscess of right lower limb; L03.115 Cellulitis of right lower limb; I11.0 Hypertensive heart disease with heart failure; I50.9 Heart failure, unspecified; A49.02 Methicillin resistant Staphylococcus aureus infection, unspecified site; E78.5 Hyperlipidemia, unspecified; K21.9 Gastro-esophageal reflux disease without esophagitis; M48.02 Spinal stenosis, cervical region; F41.9 Anxiety disorder, unspecified; F32.A Depression, unspecified; Z86.711 Personal history of pulmonary embolism; Z85.51 Personal history of malignant neoplasm of bladder; Z96.652 Presence of left artificial knee joint; Z90.49 Acquired absence of other specified parts of digestive tract; Z79.899 Other long term (current) drug therapy; Y83.8 Other surgical procedures as the cause of abnormal reaction of the patient, or of later complication, without mention of misadventure at the time of the procedure ==

== ENCOUNTER → 2023-12-15 | Outpatient (CLI) | payer OTHER | END | disposition home or self-care (01) | LOC: WOUNDCARE 02:12 | PROVIDERS: ATTEND Nurse Practitioner Family | DX: T81.31XD Disruption of external operation (surgical) wound, not elsewhere classified, subsequent encounter (principal); M72.6 Necrotizing fasciitis; L02.415 Cutaneous abscess of right lower limb; L03.115 Cellulitis of right lower limb; I11.0 Hypertensive heart disease with heart failure; I50.9 Heart failure, unspecified; A49.02 Methicillin resistant Staphylococcus aureus infection, unspecified site; E78.5 Hyperlipidemia, unspecified; K21.9 Gastro-esophageal reflux disease without esophagitis; M48.02 Spinal stenosis, cervical region; F41.9 Anxiety disorder, unspecified; F32.A Depression, unspecified; Z86.711 Personal history of pulmonary embolism; Z85.51 Personal history of malignant neoplasm of bladder; Z96.652 Presence of left artificial knee joint; Z90.49 Acquired absence of other specified parts of digestive tract; Z79.899 Other long term (current) drug therapy; Y83.8 Other surgical procedures as the cause of abnormal reaction of the patient, or of later complication, without mention of misadventure at the time of the procedure ==

== ENCOUNTER 2024-02-15 22:12 | Emergency (ER) | payer OTHER ==
[~2024-02-15] VITALS: Ht 182.8 cm; Wt 136.1 kg
[2024-02-15] MEDS ORDERED: Doxycycline Hyclate 100 MG CAP PO ONE (22:40)
[2024-02-15] MEDS ORDERED: VIBRAMYCIN100 MG PO (22:41)
== END 2024-02-15 23:01 | disposition home or self-care (01) ==
LOC: ED 22:12
DX: S20.469A Insect bite (nonvenomous) of unspecified back wall of thorax, initial encounter (principal); I11.0 Hypertensive heart disease with heart failure; J45.909 Unspecified asthma, uncomplicated; I25.2 Old myocardial infarction; K21.9 Gastro-esophageal reflux disease without esophagitis; E78.00 Pure hypercholesterolemia, unspecified; Z87.442 Personal history of urinary calculi; F32.A Depression, unspecified; I50.9 Heart failure, unspecified; Z90.49 Acquired absence of other specified parts of digestive tract; Z98.890 Other specified postprocedural states; Z96.652 Presence of left artificial knee joint; W57.XXXA Bitten or stung by nonvenomous insect and other nonvenomous arthropods, initial encounter; Y93.89 Activity, other specified; Y92.89 Other specified places as the place of occurrence of the external cause; Y99.8 Other external cause status

== ENCOUNTER → 2024-05-04 | Outpatient (CLI) | payer OTHER ==
[~2024-05-04] MED LIST changes: +VIBRAMYCIN100 MG PO
== END | disposition home or self-care (01) ==
LOC: RAD 08:20
PROVIDERS: ATTEND Nurse Practitioner Primary Care
DX: N32.89 Other specified disorders of bladder (principal); N20.0 Calculus of kidney; R39.198 Other difficulties with micturition; Z90.49 Acquired absence of other specified parts of digestive tract

== ENCOUNTER 2024-05-17 10:12 | Observation (INO) | payer OTHER ==
[~2024-05-17] VITALS: Ht 185.4 cm; Wt 139.4 kg
[2024-05-17 10:20] VITALS: BP 150/83
[2024-05-17] MEDS ORDERED: NITROGLYCERIN 13.8 GM CANS SL ONE (10:30)
[2024-05-17] MEDS ORDERED: NITROGLYCERIN 0.4 MG BOT SL ONE (10:35)
[2024-05-17 10:49] LABS: BASO % 0.3 % (0.0-1.0); EOS # 0.2 10*3/uL (0.0-0.4); EOS % 2.6 % (1.0-4.0); MEAN CELL VOLUME 86.7 fl (80.0-94.0); MEAN CORPUSCULAR HGB 27.2 pg (27.0-31.0); MEAN CORPUSCULAR HGB CONC 31.4 g/dl (33.0-37.0); MEAN PLATELET VOLUME 9.4 fl (9.6-12.3); MONO # 0.8 10*3/uL (0.1-1.0); MONO % 12.5 % (3.0-9.0); NEUT # 4.2 10*3/uL (2.3-7.9); NEUT % 66.6 % (47.0-73.0); PLATELET COUNT AUTOMATED 188 10*3/uL (130-400); RED BLOOD COUNT 4.96 10*6/uL (4.50-5.90); RED CELL DISTRI WIDTH 13.8 % (0-14.5); WHITE BLOOD COUNT 6.3 10*3/uL (4.8-10.8)
[2024-05-17] MEDS ORDERED: TAMSULOSIN HCL0.4 MG PO (10:51)
[2024-05-17 11:01] LABS: ACT PARTIAL THROMBO TIME 27.8 SECONDS (20.0-32.1)
[2024-05-17 11:10] LABS: ALKALINE PHOSPHATASE 98 U/L (46-116); BUN 14 mg/dl (9-23); CHLORIDE 104 mmol/L (98-107); POTASSIUM 4.1 mmol/L (3.4-5.1); SGPT/ALT 19 U/L (5-49); TOTAL PROTEIN 6.4 gm/dL (6.0-8.0)
[2024-05-17 11:29] VITALS: BP 118/67
[2024-05-17] MEDS ORDERED: methylPREDNISolone sod succ 125 MG VIAL IV ONE (11:35)
[2024-05-17] MEDS ORDERED: Albuterol Sulf/Ipratropium 3 ML VIAL NEB ONE (11:35)
[2024-05-17] MEDS ORDERED: Pantoprazole Sodium 40 MG VIAL IV ONE (12:20)
[2024-05-17] MEDS ORDERED: SODIUM CHLORIDE 0.9% 100 ML BAG IV ONE (12:35)
[2024-05-17] MEDS ORDERED: IOHEXOL 350 MG/ML 100 ML VIAL IV ONE (12:35)
[2024-05-17 12:44] VITALS: BP 153/75
[2024-05-17 15:44] VITALS: BP 115/60
[2024-05-17] MEDS ORDERED: LISINOPRIL40 MG PO (16:38)
[2024-05-17] MEDS ORDERED: BISACODYL 5 MG TAB PO PRN (17:10)
[2024-05-17] MEDS ORDERED: Ondansetron Hydrochloride 4 MG/2 ML VIAL IV PRN (17:10)
[2024-05-17] MEDS ORDERED: ACETAMINOPHEN 325 MG TAB PO PRN (17:10)
[2024-05-17] MEDS ORDERED: RIVAROXABAN 20 MG TAB PO SCH (18:00)
[2024-05-17 19:55] VITALS: BP 160/64
[2024-05-17] MEDS ORDERED: Albuterol Sulfate 2.5 MG/3 ML VIAL NEB SCH (20:25)
[2024-05-17] MEDS ORDERED: MORPHINE Sulfate 2 MG/ML SYR IV PRN (20:30)
[2024-05-17] MEDS ORDERED: SODIUM CHLORIDE 0.9% 1,000 ML IV ONE (20:50)
[2024-05-17] MEDS ORDERED: METOPROLOL SUCCINATE XR 50 MG TAB PO SCH (22:00)
[2024-05-17 23:08] VITALS: BP 146/77
[2024-05-18] VITALS: BP 146/77
[2024-05-18 06:12] LABS: EOS % 0.3 % (1.0-4.0); HEMATOCRIT 39.3 % (42.0-52.0); MEAN CELL VOLUME 85.4 fl (80.0-94.0); MEAN CORPUSCULAR HGB 27.6 pg (27.0-31.0); MEAN CORPUSCULAR HGB CONC 32.3 g/dl (33.0-37.0); MEAN PLATELET VOLUME 10.2 fl (9.6-12.3); MONO # 0.4 10*3/uL (0.1-1.0); MONO % 5.3 % (3.0-9.0); NEUT # 6.4 10*3/uL (2.3-7.9); NEUT % 85.7 % (47.0-73.0); PLATELET COUNT AUTOMATED 184 10*3/uL (130-400); RED CELL DISTRI WIDTH 13.8 % (0-14.5); WHITE BLOOD COUNT 7.5 10*3/uL (4.8-10.8)
[2024-05-18] MEDS ORDERED: Regadenoson 0.4 MG/5 ML SYR IV ONE (06:28)
[2024-05-18] MEDS ORDERED: Pantoprazole Sodium 20 MG TAB PO SCH (07:30)
[2024-05-18 07:46] LABS: BUN 12 mg/dl (9-23); CHLORIDE 105 mmol/L (98-107); CHOLESTEROL 110 mg/dL (<200); LDL CHOLESTEROL 59 mg/dL (9-159); LIPASE 32 U/L (12-53); POTASSIUM 3.9 mmol/L (3.4-5.1); TRIGLYCERIDES 48 mg/dl (<150)
[2024-05-18 07:51] LABS: VITAMIN D, 25-HYDROXY 32.6 ng/mL (30-100)
[2024-05-18 08:00] VITALS: BP 138/78
[2024-05-18] MEDS ORDERED: Tamsulosin Hydrochloride 0.4 MG CAP PO SCH (10:00)
[2024-05-18] MEDS ORDERED: RIVAROXABAN 20 MG TAB PO SCH (10:00)
[2024-05-18] MEDS ORDERED: ATORVASTATIN CALCIUM 40 MG TABLET PO SCH (10:00)
[2024-05-18] MEDS ORDERED: LISINOPRIL 40 MG TAB PO SCH (10:00)
[2024-05-18] MEDS ORDERED: METOPROLOL SUCCINATE XR 50 MG TAB PO SCH (10:00)
[2024-05-18] MEDS ORDERED: CITALOPRAM 20 MG TAB PO SCH (10:00)
[2024-05-18] MEDS ORDERED: ASPIRIN, CHEWABLE 81 MG TAB PO SCH (10:00)
[2024-05-18] MEDS ORDERED: POTASSIUM CHLORIDE 20 MEQ TAB PO SCH (10:00)
[2024-05-18] MEDS ORDERED: ALLOPURINOL 300 MG TAB PO SCH (10:00)
[2024-05-18] MEDS ORDERED: BUMETANIDE 1 MG TAB PO SCH (10:00)
[2024-05-18] MEDS ORDERED: COLCHICINE 0.6 MG TAB PO SCH (10:00)
[2024-05-18] MEDS ORDERED: ISOSORBIDE DINITRATE 10 MG TAB PO SCH (10:00)
[2024-05-18] MEDS ORDERED: Montelukast Sodium 10 MG TAB PO SCH (10:00)
[2024-05-18 12:00] VITALS: BP 130/70
[2024-05-18] MEDS ORDERED: Albuterol Sulfate 2.5 MG/3 ML VIAL NEB PRN (13:20)
[2024-05-18 16:00] VITALS: BP 135/74
[2024-05-18] MEDS ORDERED: ASPIRIN CHILDRE81 MG PO (16:49)
[2024-05-18] MEDS ORDERED: ATORVASTATIN CA40 M1 PO (16:49)
== END 2024-05-18 18:21 | disposition home or self-care (01) ==
LOC: ED 10:12 → EDHOLD 15:58 → 4E 22:18
PROVIDERS: Emergency Medicine; ADMIT Internal Medicine; ATTEND Internal Medicine
DX: R07.89 Other chest pain (principal); I11.0 Hypertensive heart disease with heart failure; I50.32 Chronic diastolic (congestive) heart failure; D64.9 Anemia, unspecified; K21.9 Gastro-esophageal reflux disease without esophagitis; E78.5 Hyperlipidemia, unspecified; R10.9 Unspecified abdominal pain; R79.89 Other specified abnormal findings of blood chemistry; Z79.899 Other long term (current) drug therapy

== ENCOUNTER 2024-05-31 13:55 | Emergency (ER) | payer OTHER ==
[~2024-05-31] VITALS: Ht 185.4 cm; Wt 142.4 kg
[~2024-05-31 13:55] MED LIST changes: +ASPIRIN CHILDRE81 MG PO; +ATORVASTATIN CA40 M1 PO; +LISINOPRIL40 MG PO
[2024-05-31] MEDS ORDERED: Lidocaine Hydrochloride 2% 10 ML AMP SC ONE (14:35)
[2024-05-31] MEDS ORDERED: Acetaminophen/Hydrocodone 5 MG/325 MG TABLET PO ONE (14:35)
[2024-05-31] MEDS ORDERED: Ondansetron Hydrochloride 4 MG TAB SL ONE (14:35)
[2024-05-31] MEDS ORDERED: VIBRAMYCIN100 MG PO (15:03)
[2024-05-31] MEDS ORDERED: Doxycycline Hyclate 100 MG CAP PO ONE (15:05)
[2024-05-31] MEDS ORDERED: CEPHALEXIN 500 MG CAP PO ONE (15:05)
== END 2024-05-31 15:20 | disposition home or self-care (01) ==
LOC: ED 13:55
DX: L03.012 Cellulitis of left finger (principal); F41.9 Anxiety disorder, unspecified; J45.909 Unspecified asthma, uncomplicated; I11.0 Hypertensive heart disease with heart failure; I50.9 Heart failure, unspecified; M10.9 Gout, unspecified; E78.5 Hyperlipidemia, unspecified; D64.9 Anemia, unspecified; I25.2 Old myocardial infarction; F32.A Depression, unspecified; Z87.442 Personal history of urinary calculi; Z90.49 Acquired absence of other specified parts of digestive tract; Z96.652 Presence of left artificial knee joint; Z98.890 Other specified postprocedural states

== ENCOUNTER 2025-01-10 10:27 | Emergency (ER) | payer OTHER ==
[~2025-01-10] VITALS: Ht 185.4 cm; Wt 137.0 kg
[~2025-01-10 10:27] MED LIST changes: +PANTOPRAZOLE SO40 MG PO; +Vibra-Tab100 MG PO
[2025-01-10] MEDS ORDERED: Ondansetron Hydrochloride 4 MG/2 ML VIAL IV ONE (10:40)
[2025-01-10 11:09] LABS: BASO # 0.0 10*3/uL (0.0-0.1); BASO % 0.3 % (0.0-1.0); EOS # 0.3 10*3/uL (0.0-0.4); EOS % 3.7 % (1.0-4.0); MEAN CELL VOLUME 88.8 fl (80.0-94.0); MEAN CORPUSCULAR HGB 28.0 pg (27.0-31.0); MEAN PLATELET VOLUME 10.0 fl (9.6-12.3); MONO # 0.6 10*3/uL (0.1-1.0); MONO % 8.0 % (3.0-9.0); NEUT # 5.6 10*3/uL (2.3-7.9); NEUT % 70.7 % (47.0-73.0); NUCLEATED RED BLOOD CELL 0.0 % (0.0-0.0); NUCLEATED RED BLOOD CELL 0.0 10*3/uL (0.0-0.0); PLATELET COUNT AUTOMATED 231 10*3/uL (130-400); RED CELL DISTRI WIDTH 13.6 % (0-14.5)
[2025-01-10 11:15] LABS: BILIRUBIN Negative (Negative); BLOOD Negative (Negative); CLARITY Clear (Clear); COLOR Yellow (Yellow); KETONE Negative (Negative); LEUKO ESTERASE Negative (Negative); NITRITE Negative (Negative); PH 5.0 (4.5-8.0); SPECIFIC GRAVITY <= 1.005 (1.001-1.030); UROBILINOGEN 0.2 E.U./dl (0.0-1.0)
[2025-01-10 11:27] LABS: BACTERIA TRACE; RBC 0-2 rbc/hpf (0-2); WBC 0-2 wbc/hpf (0-5)
[2025-01-10 11:32] LABS: BUN 16 mg/dl (9-23)
[2025-01-10] MEDS ORDERED: SODIUM CHLORIDE 0.9% 1,000 ML IV ONE (12:25)
[2025-01-10] MEDS ORDERED: Ondansetron4 MG PO (12:26)
[2025-01-10] MEDS ORDERED: ANTI-DIARRHEAL2 MG PO (12:26)
== END 2025-01-10 13:38 | disposition home or self-care (01) ==
LOC: ED 10:27
PROVIDERS: Emergency Medicine
DX: R11.2 Nausea with vomiting, unspecified (principal); R53.1 Weakness; R19.7 Diarrhea, unspecified; I11.0 Hypertensive heart disease with heart failure; I50.9 Heart failure, unspecified; J45.909 Unspecified asthma, uncomplicated; E78.00 Pure hypercholesterolemia, unspecified; F32.A Depression, unspecified; F41.9 Anxiety disorder, unspecified; Z20.822 Contact with and (suspected) exposure to COVID-19; Z79.899 Other long term (current) drug therapy; Z90.49 Acquired absence of other specified parts of digestive tract; Z98.890 Other specified postprocedural states

== ENCOUNTER 2025-02-08 19:50 | Emergency (ER) | payer OTHER ==
[~2025-02-08] VITALS: Ht 185.4 cm; Wt 144.2 kg
[~2025-02-08 19:50] MED LIST changes: +ANTI-DIARRHEAL2 MG PO; +Ondansetron4 MG PO
[2025-02-08] MEDS ORDERED: Ondansetron4 MG PO (20:17)
[2025-02-08] MEDS ORDERED: POTASSIUM CHLO20 ME4 PO (20:18)
[2025-02-08] MEDS ORDERED: DERMABOND 1 EA APPL T ONE (21:17)
[2025-02-08] MEDS ORDERED: Acetaminophen/Oxycodone Hydr 7.5 MG/325 MG TABLET PO ONE (21:50)
[2025-02-08] MEDS ORDERED: PREDNISONE20 M1 PO (22:38)
[2025-02-08] MEDS ORDERED: PERCOCET 5-3251 EACH PO (22:38)
== END 2025-02-08 23:02 | disposition home or self-care (01) ==
LOC: ED 19:50
DX: S06.0XAA Concussion with loss of consciousness status unknown, initial encounter (principal); S49.91XA Unspecified injury of right shoulder and upper arm, initial encounter; I11.0 Hypertensive heart disease with heart failure; I50.9 Heart failure, unspecified; J45.909 Unspecified asthma, uncomplicated; I25.2 Old myocardial infarction; K21.9 Gastro-esophageal reflux disease without esophagitis; E78.00 Pure hypercholesterolemia, unspecified; F32.A Depression, unspecified; Z90.49 Acquired absence of other specified parts of digestive tract; Z96.652 Presence of left artificial knee joint; Z98.890 Other specified postprocedural states; Z98.84 Bariatric surgery status; Z87.442 Personal history of urinary calculi; W19.XXXA Unspecified fall, initial encounter; Y93.89 Activity, other specified; Y92.89 Other specified places as the place of occurrence of the external cause; Y99.8 Other external cause status

== ENCOUNTER → 2025-02-28 | Outpatient (CLI) | payer OTHER ==
[~2025-02-28] MED LIST changes: +PERCOCET 5-3251 EACH PO; +POTASSIUM CHLO20 ME4 PO; +PREDNISONE20 M1 PO
== END | disposition home or self-care (01) ==
LOC: MRI 02:56
PROVIDERS: ATTEND Nurse Practitioner Primary Care
DX: M75.121 Complete rotator cuff tear or rupture of right shoulder, not specified as traumatic (principal); M19.011 Primary osteoarthritis, right shoulder; M25.412 Effusion, left shoulder; M47.812 Spondylosis without myelopathy or radiculopathy, cervical region; M50.33 Other cervical disc degeneration, cervicothoracic region; M75.81 Other shoulder lesions, right shoulder; M62.511 Muscle wasting and atrophy, not elsewhere classified, right shoulder; M25.78 Osteophyte, vertebrae; M48.02 Spinal stenosis, cervical region; J34.1 Cyst and mucocele of nose and nasal sinus; R60.0 Localized edema; M99.79 Connective tissue and disc stenosis of intervertebral foramina of abdomen and other regions; M25.9 Joint disorder, unspecified; R27.0 Ataxia, unspecified; M25.511 Pain in right shoulder; R51.9 Headache, unspecified; R40.20 Unspecified coma; W19.XXXA Unspecified fall, initial encounter; Y93.89 Activity, other specified; Y92.89 Other specified places as the place of occurrence of the external cause; Y99.8 Other external cause status